=== PATIENT | female | born 1960 | race Caucasian/White ===

== ENCOUNTER → 2023-11-25 07:29 | Outpatient (REF) | payer OTHER, SELFPAY ==
[2023-11-25 08:09] LABS: % Basophils 1.4 % (0-2); % Eosinophils 3.3 % (0-6); % Immature Granulocytes 0.3 % (0-0.5); % Lymphocytes 28.1 % (20.5-51.1); % Monocytes 8.1 % (1.7-9.3); % Neutrophils 58.8 % (42.2-75.2); Absolute Basophils 0.1 10^3/uL (0-0.2); Absolute Eosinophils 0.1 10^3/uL (0-0.7); Absolute Monocytes 0.3 10^3/uL (0.1-0.6); Absolute Neutrophils 2.1 10^3/uL (1.4-6.5); Hematocrit 33.8 % (37.0-47.0); Hemoglobin 11.8 g/dL (12.0-16.0); Mean Corp Hgb Conc. 34.9 g/dL (33.0-37.0); Mean Corpuscular Hgb 31.6 pg (27.0-31.0); Mean Corpuscular Volume 90.4 fL (81.0-99.0); Nucleated Red Blood Cells % 0 %; Platelet Count 326 10^3/uL (130-400); Red Blood Cell Count 3.74 10^6/uL (4.20-5.40); Red Cell Dist. Width 12.5 % (11.5-14.5); White Blood Cell Count 3.6 10^3/uL (4.8-10.8)
[2023-11-25 08:24] LABS: Erythrocyte Sed Rate 2 mm/hour (0-20)
[2023-11-25 09:23] LABS: ALT (SGPT) 23 U/L (0-35); AST (SGOT) 30 U/L (14-36); Albumin 4.3 g/dl (3.5-5.0); Alkaline Phosphatase 62 U/L (38-126); Blood Urea Nitrogen 11 mg/dl (7-17); Calcium 8.9 mg/dl (8.4-10.2); Carbon Dioxide 27 mmol/L (22-30); Chloride 97 mmol/L (98-107); Glucose 70 mg/dl (70-99); Iron 133 ug/dl (37-170); Potassium 4.6 mmol/L (3.5-5.1); Sodium 129 mmol/L (135-145); Total Bilirubin 0.5 mg/dl (0.2-1.3); Total Protein 6.6 g/dl (6.3-8.2); eGFR > 60.00
[2023-11-25 09:29] LABS: C-Reactive Protein < 5.00 mg/L (0.0-10.00)
[2023-11-25 09:32] LABS: Percent Saturation 40 % (20-50); Total Iron Binding Capacity 325 ug/dl (265-497)
[2023-11-25 10:00] LABS: TSH 1.43 uIU/ml (0.47-4.68)
[2023-11-25 10:04] LABS: Ferritin 27.6 ng/ml (11.1-264.0)
[2023-11-25 10:35] LABS: Folate 16.6 ng/ml (2.76-20); Vitamin B12 828 pg/ml (239-931)
[2023-11-26 18:50] LABS: CCP Antibody IgG/IgA 4 Units (0-19)
[2023-11-26 21:37] LABS: ANA, IgG Reflex to HEp-2 None Detected (None Detected)
[2023-11-27 01:30] LABS: IgA 104 mg/dl (70-400); IgG 784 mg/dl (700-1600)
[2023-11-27 15:50] LABS: Rheumatoid Agglutinin Less Than 10 IU (<10 IU)
[2023-11-27 15:50] LABS: Lyme Antibody Screen, EIA Negative (Negative)
== END ==
LOC: REG 07:29
PROVIDERS: ATTENDING PHYSICIAN Family Medicine
DX: I10 Essential (primary) hypertension (principal); F51.05 Insomnia due to other mental disorder; M79.89 Other specified soft tissue disorders; R41.3 Other amnesia; R53.83 Other fatigue
CPT/HCPCS: 36415; 80053; 82607; 82728; 82746; 82784; 83540; 83550; 84443; 85025; 85652; 86038; 86140; 86200; 86430; 86618

== ENCOUNTER → 2024-06-08 07:23 | Outpatient (REF) | payer OTHER, SELFPAY ==
[2024-06-08 08:07] LABS: Urine Albumin Trace (Neg - Trace); Urine Bilirubin Negative (Negative); Urine Character Slightly Cloudy (Clear); Urine Color Yellow; Urine Glucose Negative (Negative); Urine Ketone Negative (Negative); Urine Leukocyte 2+ (Negative); Urine Nitrite Negative (Negative); Urine Occult Blood 2+ (Negative); Urine Specific Gravity 1.015 (<1.030); Urine Urobilinogen Negative (Neg - 1+); Urine pH 6.5 (5.0-9.0)
[2024-06-08 08:13] LABS: % Eosinophils 3.6 % (0-6); % Immature Granulocytes 0.3 % (0-0.5); % Lymphocytes 33.9 % (20.5-51.1); % Neutrophils 48.2 % (42.2-75.2); Absolute Basophils 0.1 10^3/uL (0-0.2); Absolute Eosinophils 0.1 10^3/uL (0-0.7); Absolute Lymphocytes 1.2 10^3/uL (1.2-3.4); Absolute Monocytes 0.4 10^3/uL (0.1-0.6); Absolute Neutrophils 1.7 10^3/uL (1.4-6.5); Hematocrit 35.4 % (37.0-47.0); Hemoglobin 12.5 g/dL (12.0-16.0); Mean Corp Hgb Conc. 35.3 g/dL (33.0-37.0); Mean Corpuscular Hgb 33.2 pg (27.0-31.0); Mean Corpuscular Volume 93.9 fL (81.0-99.0); Mean Platelet Volume 8.7 fL (7.4-10.4); Nucleated Red Blood Cells % 0 %; Platelet Count 307 10^3/uL (130-400); Red Blood Cell Count 3.77 10^6/uL (4.20-5.40); Red Cell Dist. Width 11.9 % (11.5-14.5); White Blood Cell Count 3.6 10^3/uL (4.8-10.8)
[2024-06-08 08:31] LABS: ALT (SGPT) 27 U/L (0-35); AST (SGOT) 29 U/L (14-36); Albumin 4.7 g/dl (3.5-5.0); Alkaline Phosphatase 44 U/L (38-126); Blood Urea Nitrogen 6 mg/dl (7-17); Calcium 9.7 mg/dl (8.4-10.2); Carbon Dioxide 30 mmol/L (22-30); Chloride 95 mmol/L (98-107); Glucose 88 mg/dl (70-99); HDL Cholesterol 91 mg/dl; LDL Cholesterol, Calculated 72 mg/dl; Potassium 4.6 mmol/L (3.5-5.1); Sodium 135 mmol/L (135-145); Total Bilirubin 0.2 mg/dl (0.2-1.3); Total Cholesterol 179 mg/dl (50-199); Total Protein 6.8 g/dl (6.3-8.2); Triglyceride 81 mg/dl (10-149); Very Low Density Lipoprotein 16 mg/dl (0-30); eGFR > 60.00
[2024-06-08 08:42] LABS: Vitamin D, 25-OH*** 50.6 ng/mL (30-80)
[2024-06-08 08:47] LABS: Urine Bacteria Many (Negative); Urine Squamous Cell 16-20 /LPF (Few); Urine White Cell 30-40 /HPF (0-5)
[2024-06-08 08:56] LABS: TSH 0.41 uIU/ml (0.47-4.68)
== END ==
LOC: REG 07:23
PROVIDERS: ATTENDING PHYSICIAN Family Medicine
DX: I10 Essential (primary) hypertension (principal); E78.00 Pure hypercholesterolemia, unspecified; E55.9 Vitamin D deficiency, unspecified; Z00.00 Encounter for general adult medical examination without abnormal findings
CPT/HCPCS: 36415; 80053; 80061; 81003; 81015; 82306; 84443; 85025

== ENCOUNTER → 2024-06-26 15:04 | Outpatient (REF) | payer OTHER, SELFPAY | LOC: WDC 15:04 | PROVIDERS: ATTENDING PHYSICIAN Family Medicine | DX: Z12.31 Encounter for screening mammogram for malignant neoplasm of breast (principal) | CPT/HCPCS: 77063; 77067 ==

== ENCOUNTER 2024-07-24 13:13 | Emergency (ER) | payer OTHER, SELFPAY ==
[2024-07-24] VITALS (10 sets, daily range): BP systolic 161–191; BP diastolic 79–111; PULSE 69–77
[2024-07-24 13:42] LABS: % Basophils 0.8 % (0-2); % Eosinophils 0.8 % (0-6); % Immature Granulocytes 0.2 % (0-0.5); % Monocytes 6.8 % (1.7-9.3); % Neutrophils 66.4 % (42.2-75.2); Absolute Lymphocytes 1.3 10^3/uL (1.2-3.4); Absolute Monocytes 0.3 10^3/uL (0.1-0.6); Absolute Neutrophils 3.3 10^3/uL (1.4-6.5); Hematocrit 37.8 % (37.0-47.0); Mean Corp Hgb Conc. 34.4 g/dL (33.0-37.0); Mean Corpuscular Hgb 32.7 pg (27.0-31.0); Mean Corpuscular Volume 95.2 fL (81.0-99.0); Nucleated Red Blood Cells % 0 %; Platelet Count 238 10^3/uL (130-400); Red Blood Cell Count 3.97 10^6/uL (4.20-5.40); Red Cell Dist. Width 11.8 % (11.5-14.5)
[2024-07-24 13:59] LABS: ALT (SGPT) 29 U/L (0-35); AST (SGOT) 31 U/L (14-36); Alkaline Phosphatase 38 U/L (38-126); Blood Urea Nitrogen 12 mg/dl (7-17); Calcium 9.4 mg/dl (8.4-10.2); Carbon Dioxide 25 mmol/L (22-30); Chloride 97 mmol/L (98-107); Glucose 127 mg/dl (70-99); Potassium 3.8 mmol/L (3.5-5.1); Sodium 136 mmol/L (135-145); Total Bilirubin 0.3 mg/dl (0.2-1.3); Total Protein 7.1 g/dl (6.3-8.2); eGFR > 60.00
[2024-07-24 14:10] LABS: Troponin I < 0.012 ng/ml
[2024-07-24] MEDS: NSS 1000 IV (17:17)
[2024-07-24 17:36] LABS: Magnesium 1.9 mg/dl (1.6-2.3); Phosphorus 3.8 mg/dl (2.5-4.5)
--- NOTE | 2024-07-24 17:39 | ED.GENMED ---
History of Present Illness
General
Chief Complaint: Chest Pain
Source: patient
Exam Limitations: none
Time Seen by Provider: 07/24/24 16:02
Nursing documentation reviewed up to this point in time: agreed with
History of Present Illness
History of Present Illness:
63-year-old female with a past medical history of hypertension who presents to the emergency department for evaluation of dizziness/weakness. Patient reports onset of symptoms a few days ago and they have been constant since that time. She reports
lightheaded sensation and feeling of weakness in her whole body--she says that when she stands she feels like her legs might give out. She says today her symptoms are so bad that when she was walked down the steps she had to sit down on the step.
Called her primary doctor who referred her to the emergency room. She does have issues with hyponatremia and is on a fluid restriction she says she drinks about 4 bottles of water a day. She does state that she had some loose stools earlier today.
Has not had any recent vomiting. No abdominal pain. She denies any chest pain to me although triage note mentions chest pain�she reports more of an occasional tightness in her chest. Denies shortness of breath. No cough. No focal weakness or
numbness. She denies any other complaints.
Past History
Past History
ED Past Medical History: HTN, Hypercholesterolemia and Other (Spinal stenosis)
ED Past Surgical History: Gynecological, Orthopedic and Tonsilectomy
Social History
Tobacco: Non-smoker
Alcohol: Occasional
Drug: None
Personal:
Living: with family
Review of Systems
Review of Systems
All Other Systems: ROS reviewed and negative except as documented in HPI and ROS
Constitutional: Reports fatigue; Denies fever or chills
EENT: Denies sore throat or runny nose
Respiratory: Denies cough or trouble breathing
Cardiac: Denies chest pain, palpitations or syncope
ABD/GI: Reports diarrhea; Denies abdominal pain, nausea or vomiting
: Denies flank pain
Musculoskeletal: Denies neck pain or back pain
Neurological: Reports dizzy and weakness (Generalized); Denies headache or numbness
Phy Exam
Physical Exam
Physical Exam:
General: Awake, alert, oriented x3; no acute distress
Head: Normocephalic, atraumatic
Eyes: Conjunctiva normal, EOMI without nystagmus, pupils equal round and reactive to light bilaterally
Throat: Airway intact, dry mucous membranes
Neck: Trachea midline, supple without meningismus
Lungs: Clear to auscultation bilaterally, no wheezing, rales, rhonchi
Heart: Regular rate and rhythm, no murmurs, gallops, or rubs
Abd: Soft, non distended, nontender
Neuro: Cranial nerves grossly intact, speech fluid
Skin: no rash
Extremities: No edema in extremities, equal pulses in all extremities
Scores
Heart Failure Risk
Heart Failure Risk Score: Not Applicable
Heart Score for Chest Pain Patients
STEMI patient?: Not applicable
Withdrawal Assessment of Alcohol
Withdrawal Assessment Completed?: Not applicable
Course
Orders/Labs/Results
Orders:
Orders
07/24/24 13:14
Electrocardiogram (*1) Urgent
Reason for Study: Chest Pain
EKG- Treatment ONCE
07/24/24 13:33
CBC/With Diff [Complete Blood Count/With Diff] Urgent
Comprehensive Metabolic Panel Urgent
Magnesium Urgent
Comment: ADD ON
Phosphorus Urgent
Comment: ADD ON
Troponin I Urgent
07/24/24 16:50
Add On- LAB Urgent
Tests Added?: Mg level, Phos level
Orthostatic VS- Treatment ONCE
0.9% Sodium Chloride 1000 ml [Nss] 1,000 ml IV BOLUS
Abnormal Lab Results
07/24/24
13:33
RBC 3.97 L 10^6/uL
(4.20-5.40)
MCH 32.7 H pg
(27.0-31.0)
Chloride 97 L mmol/L
(98-107)
Glucose 127 H mg/dl
(70-99)
07/24/24 13:33
07/24/24 13:33
Vital Signs
Initial and Last Documented VS:
Initial Vital Signs
Temp Pulse Resp BP Pulse Ox
37.1 C 96 16 165/108 99
07/24/24 13:28 07/24/24 13:28 07/24/24 13:28 07/24/24 13:28 07/24/24 13:28
Last Documented Vital Signs
Temp Pulse Resp BP Pulse Ox
37.1 C 69 15 185/85 98
07/24/24 13:28 07/24/24 17:30 07/24/24 17:30 07/24/24 17:00 07/24/24 17:30
MDM/Problems Addressed
Differential Diagnosis Includes:
Dehydration, electrolyte derangement, anemia, dysrhythmia; clinical picture does not seem consistent with vertigo
MDM/Problems Addressed:
63-year-old female presents for evaluation of weakness and lightheadedness over the past few days. She has a known history of hyponatremia and is on fluid restriction. Hypertensive otherwise normal vitals here. Physical exam as above. Will place
an IV check labs including a CBC and a CMP, magnesium, phosphorus level. Check EKG and troponin. Check orthostatic vital signs. Provide fluids. Reassess after the above.
Labs reviewed: CBC shows no clinically significant abnormalities, CMP within acceptable range�sodium notably normal at 136. Troponin undetectable. EKG shows sinus rhythm.
Acute Exacerbation and/or Progression of Chronic Illness:
Acutely hypertensive
Acute Exacerbation and/or Progression of Chronic Illness: HTN
*Pulse Oximetry
Patient hypoxic: no
*EKG
Interpreted by ED Provider?: Yes
Heart Rate: 103
Rate: tachycardiac
Rhythm: sinus and sinus tachycardia
[place]: normal axis
Interval: normal interval
QRS Pattern: normal QRS
Ischemia: non-specific ST changes
*Critical Care Note
Total Time (30-74mins, 75-104mins- exclusive of procedures): Not Applicable
Data Reviewed
Review of Other/Old Records Reveals: Labs and Records
Source: patient
ED Attending Note
-
Portions of this chart may have been created with voice recognition software.� Occasional wrong word or��sound alike� substitutions may have occurred due to the inherent limitations of voice recognition software.
Discharge Plan
Departure
Prescriptions:
No Action
pregabalin 100 MG capsule
150 mg PO DAILY
tramadol 300 MG tablet extended release 24 hr
300 mg PO DAILYPRN PRN (Reason: moderate pain)
ginseng 100 mg Capsule
100 mg PO DAILY
ginkgo biloba 40 mg Tablet
40 mg PO DAILY
milk thistle 150 mg Capsule
150 mg PO DAILY
ascorbic acid (vitamin C) [Vitamin C] 500 mg Tablet
500 mg PO DAILY
vitamin B complex Tablet
1 tab PO DAILY
ondansetron 4 mg tablet,disintegrating
4 mg PO Q6HPRN PRN (Reason: nausea)
green tea leaf extract Capsule
1 cap PO DAILY
pregabalin 50 mg capsule
50 mg PO HSPRN PRN (Reason: nerve pain)
cholecalciferol (vitamin D3) [Vitamin D3] 50 mcg (2,000 unit) Tablet
50 mcg PO DAILY
yfbhpigx-ojeeipejsjj-dsp C-Mn 530-875-85-2.5 mg Tablet
1 tab PO DAILY
[id number]
1 dose PO DAILY
acetaminophen [acetaminophen] 325 mg tablet
650 mg PO Q4HPRN PRN (Reason: mild pain) Qty: 1 0RF
ibuprofen 800 mg tablet
800 mg PO DAILYPRN PRN (Reason: mild pain) Qty: 0 0RF
Rx Instructions:
Take 1/2 tablet two to three times a day
Referrals:
Charlie Abraham DO [Family Provider] -
Interventions
Interventions:
*Risk Screen - Suicide Last Done: 07/24/24 13:28
*General Assessment Last Done: 07/24/24 13:28
*Neglect/Abuse Screening Last Done: 07/24/24 13:28
*ED COVID-19 Vaccine History Last Done: 07/24/24 13:28
ED- Cardiac Assessment Last Done: 07/24/24 17:05
ED- Neurological Assessment Last Done: 07/24/24 17:05
ED- Pulmonary Assessment Last Done: 07/24/24 17:05
Discharge Date and Time
Print Language: FAROESE
== END 2024-07-24 19:21 | disposition home or self-care (01) ==
LOC: EMR 13:13
PROVIDERS: Emergency Medicine; EMERGENCY PHYSICIAN Emergency Medicine; FAMILY PHYSICIAN Family Medicine
DX: R42 Dizziness and giddiness (principal); R07.89 Other chest pain; E87.1 Hypo-osmolality and hyponatremia; E78.00 Pure hypercholesterolemia, unspecified; I10 Essential (primary) hypertension
CPT/HCPCS: 96360; 99284; 80053; 83735; 84100; 84484; 85025; 93005

== ENCOUNTER 2025-03-19 06:21 | Day surgery (SDC) | payer OTHER, SELFPAY | END 2025-03-19 11:07 | disposition home or self-care (01) | LOC: GI 06:21 | PROVIDERS: ATTENDING PHYSICIAN Internal Medicine; FAMILY PHYSICIAN Family Medicine | DX: Z12.11 Encounter for screening for malignant neoplasm of colon (principal); K57.30 Diverticulosis of large intestine without perforation or abscess without bleeding; D12.3 Benign neoplasm of transverse colon | CPT/HCPCS: 45385; 45380; 88305 ==

== ENCOUNTER → 2025-05-17 07:31 | Outpatient (REF) | payer OTHER, SELFPAY ==
[2025-05-17 08:55] LABS: Hematocrit 35.1 % (37.0-47.0); Hemoglobin 12.0 g/dL (12.0-16.0); Mean Corp Hgb Conc. 34.2 g/dL (33.0-37.0); Mean Corpuscular Volume 91.2 fL (81.0-99.0); Nucleated Red Blood Cells % 0 %; Platelet Count 288 10^3/uL (130-400); Red Cell Dist. Width 12.4 % (11.5-14.5)
[2025-05-17 09:25] LABS: ALT (SGPT) 24 U/L (0-35); AST (SGOT) 27 U/L (14-36); Albumin 4.5 g/dl (3.5-5.0); Alkaline Phosphatase 40 U/L (38-126); Blood Urea Nitrogen 17 mg/dl (7-17); Calcium 9.6 mg/dl (8.4-10.2); Carbon Dioxide 28 mmol/L (22-30); Chloride 103 mmol/L (98-107); Glucose 91 mg/dl (70-99); HDL Cholesterol 83 mg/dl; LDL Cholesterol, Calculated 94 mg/dl; Potassium 5.5 mmol/L (3.5-5.1); Sodium 135 mmol/L (135-145); Total Protein 6.8 g/dl (6.3-8.2); Very Low Density Lipoprotein 22 mg/dl (0-30); eGFR > 60.00
[2025-05-17 09:39] LABS: Vitamin D, 25-OH*** 51.9 ng/mL (30-80)
[2025-05-17 09:53] LABS: TSH 1.88 uIU/ml (0.47-4.68)
== END ==
LOC: REG 07:31
PROVIDERS: ATTENDING PHYSICIAN Family Medicine
DX: E55.9 Vitamin D deficiency, unspecified (principal); Z00.00 Encounter for general adult medical examination without abnormal findings; E78.00 Pure hypercholesterolemia, unspecified; I10 Essential (primary) hypertension
CPT/HCPCS: 36415; 80053; 80061; 82306; 84443; 85025

== ENCOUNTER → 2025-06-30 17:11 | Outpatient (REF) | payer OTHER, SELFPAY | LOC: WDC 17:11 | PROVIDERS: ATTENDING PHYSICIAN Nurse Practitioner Family; FAMILY PHYSICIAN Family Medicine | DX: Z12.31 Encounter for screening mammogram for malignant neoplasm of breast (principal) | CPT/HCPCS: 77063; 77067 ==

== ENCOUNTER → 2025-09-03 07:51 | Outpatient (REF) | payer OTHER, SELFPAY | LOC: RAD 07:51 | PROVIDERS: ATTENDING PHYSICIAN Family Medicine | DX: M25.551 Pain in right hip (principal); M51.362 Other intervertebral disc degeneration, lumbar region with discogenic back pain and lower extremity pain; M47.818 Spondylosis without myelopathy or radiculopathy, sacral and sacrococcygeal region | CPT/HCPCS: 72110; 72202; 73502 ==